=== PATIENT | male | born 1985 | race American Indian/Alaskan Native ===

== ENCOUNTER 2020-04-22 07:52 | Emergency (ER) | payer MEDICARE ==
[2020-04-22 07:57] VITALS: BP 150/87
--- NOTE | 2020-04-22 08:04 | Emergency Department Report ---
Abscess Boil HPI - HPI Chief Complaint: Skin/Abscess/Foreign Body Stated Complaint: BOIL ON LEFT BUTTOCKS Time Seen by Provider: 04/22/20 08:02 Duration: 5 Days Location: Sacral/Pilonidal History: Yes Pain, Yes Purulent Drainage, Yes Foreign Body, Yes Previous History, No Fever, No Numbness, No Insect Bite HPI: 34-year-old male presents to the ER today with complaints of an abscess to pilonidal area. Patient states that he has a history of recurrent abscesses. He states that this wound flared up about 5 days ago. He states that it has been draining pus but is still painful. He denies any fever or chills at home. He reports no other symptoms at this time. Home Medications: Previous Rx's Medication Instructions Recorded Last Taken Type Ibuprofen [Motrin] 800 mg PO Q8HR PRN #30 tablet 04/22/20 Unknown Rx Sulfamethoxazole/Trimethoprim 1 each PO BID #14 tablet 04/22/20 Unknown Rx [Bactrim DS TAB] Allergies/Adverse Reactions: Allergies Allergy/AdvReac Type Severity Reaction Status Date / Time No Known Allergies Allergy Verified 04/22/20 07:53 ED Review of Systems ROS: Stated complaint: BOIL ON LEFT BUTTOCKS Other details as noted in HPI Comment: All other systems reviewed and negative Constitutional: denies: chills, fever Eyes: denies: eye pain, eye discharge, vision change ENT: denies: ear pain, throat pain Respiratory: denies: cough, shortness of breath, wheezing Cardiovascular: denies: chest pain, palpitations Endocrine: no symptoms reported Gastrointestinal: denies: abdominal pain, nausea, diarrhea Skin: other (Abscess). denies: rash, lesions Psychiatric: denies: anxiety, depression ED Past Medical Hx - Past Medical History Previous Medical History?: No - Surgical History Past Surgical History?: No - Social History Smoking Status: Current Every Day Smoker Substance Use Type: None - Medications Home Medications: Home Medications Medication Instructions Recorded Confirmed Last Taken Type Ibuprofen [Motrin] 800 mg PO Q8HR PRN #30 tablet 04/22/20 Unknown Rx Sulfamethoxazole/Trimethoprim 1 each PO BID #14 tablet 04/22/20 Unknown Rx [Bactrim DS TAB] ED Abscess Boil Physical Exam - Exam General: Vital signs noted. No distress. Alert and acting appropriately. Exam: Yes Tenderness (Mild, pilonidal area), Yes Normal Neurologic Exam, Yes Normal Circulation, No Fluctuance, No Surrounding Cellulites/Erythema, No Lymphangitis, No Crepitation, No Heart Murmur Exam: Approximately 2 cm x 1 cm indurated area noted to the pilonidal area. No fluctuance noted. There is a very small opening noted in the center but no active drainage at this time. No cellulitis. Very mild tenderness to palpation. ED Course Vital Signs 04/22/20 07:56 Temperature 99.5 F Pulse Rate 124 H Respiratory 20 Rate Blood Pressure 150/87 [Right] O2 Sat by Pulse 99 Oximetry Critical care attestation.: If time is entered above; I have spent that time in minutes in the direct care of this critically ill patient, excluding procedure time. ED Medical Decision Making - Medical Decision Making Patient with a small pilonidal abscess which has been draining. Physical exam does not suggest additional incision and drainage indicated at this time. There is no cellulitis. Patient was started on antibiotics. Recommend warm compresses. Patient is well-appearing, nontoxic, does not appear to be in any acute pain or respiratory distress. Repeat heart rate 104, remaining vitals stable. Patient expressed understanding of instructions and agree with plan. Patient stable at time of discharge. ED Disposition Clinical Impression: Pilonidal abscess Disposition: - TO HOME OR SELFCARE Is pt being admited?: No Does the pt Need Aspirin: No Condition: Stable Instructions: Skin Abscess, Kyje-sc-Arut, Pilonidal Cyst Drainage Additional Instructions: Take the Motrin and antibiotic as prescribed. Recommend doing warm compresses. Follow-up with the primary care doctor. Return to the ER if your symptoms changes or worsens in any way. Prescriptions: Sulfamethoxazole/Trimethoprim [Bactrim DS TAB] 1 each PO BID #14 tablet Ibuprofen [Motrin] 800 mg PO Q8HR PRN #30 tablet PRN Reason: pain Referrals: SONDRA PARRY MD [Staff Physician] - 3-5 Days Forms: Work/School Release Form(ED) Time of Disposition: 08:13
== END 2020-04-22 08:20 | disposition home or self-care (01) ==
LOC: ED 07:52
DX: L05.01 Pilonidal cyst with abscess (principal); F17.200 Nicotine dependence, unspecified, uncomplicated; Z79.1 Long term (current) use of non-steroidal anti-inflammatories (NSAID); Z79.899 Other long term (current) drug therapy
CPT/HCPCS: 99282